=== PATIENT | male | born 1985 | race Caucasian/White ===

== ENCOUNTER 2016-10-18 08:01 | Emergency (ER) | payer MEDICAID ==
[~2016-10-18] VITALS: Ht 175.3 cm; Wt 178.1 kg
[~2016-10-18 08:01] MED LIST: IBUP200T48
[2016-10-18 08:03] VITALS: BP 125/82
[2016-10-18] MEDS ORDERED: FLUORESCEIN OPHTHALMIC 1 MG STRIP ONE (08:20)
[2016-10-18] MEDS ORDERED: PROPARACAINE OPHTH 0.5%, 15ML ONE (08:20)
[2016-10-18] MEDS ORDERED: PROPARACAINE OPHTH 0.5%, 15ML EACHEYE ONE (08:30)
[2016-10-18] MEDS ORDERED: FLUORESCEIN OPHTHALMIC 1 MG STRIP EACHEYE ONE (08:30)
[2016-10-18] MEDS ORDERED: AMOXICILLIN/CLAV 875-125MG TABLET PO ONE (09:23)
== END 2016-10-18 09:52 | disposition home or self-care (01) ==
LOC: ED 08:40
DX: L01.01 Non-bullous impetigo (principal); K21.9 Gastro-esophageal reflux disease without esophagitis
CPT/HCPCS: 99283

== ENCOUNTER 2016-12-30 18:49 | Emergency (ER) | payer MEDICAID ==
[~2016-12-30] VITALS: Ht 175.3 cm; Wt 175.3 kg
[2016-12-30 18:50] VITALS: BP 138/79
== END 2016-12-30 19:45 | disposition home or self-care (01) ==
LOC: ED 19:23
DX: K08.89 Other specified disorders of teeth and supporting structures (principal); K21.9 Gastro-esophageal reflux disease without esophagitis
CPT/HCPCS: 99283